=== PATIENT | male | born 1940 | race Caucasian/White ===

== ENCOUNTER 2016-07-05 18:22 | Observation (INO) | payer MEDICARE, OTHER ==
[2016-07-05] MEDS ORDERED: HYDROmorphone 1 MG/ML SYRINGE IVP STA (19:29)
[2016-07-05] MEDS ORDERED: SODIUM CHLORIDE 0.9% 1,000 ML IV ONE (19:29)
[2016-07-05] MEDS ORDERED: HYDROmorphone 1 MG/ML SYRINGE ONE (19:42)
[2016-07-05] MEDS ORDERED: ONDANSETRON 4 MG/2 ML VIAL ONE ×2 (19:52)
[2016-07-05] MEDS ORDERED: ONDANSETRON 4 MG/2 ML VIAL IVP STA (19:56)
[2016-07-05] MEDS ORDERED: PROMETHAZINE INJ 25 MG in SODIUM CHLORIDE 0.9% 50 ML IV STA (20:38)
[2016-07-05] MEDS ORDERED: PROMETHAZINE 25 MG/1 ML VIAL ONE (20:39)
[2016-07-05] MEDS ORDERED: IOPAMIDOL-300 100 ML VIAL IVP ONE (21:22)
[2016-07-05] MEDS ORDERED: MORPHINE 2 MG/ML SYRINGE IVP STA (21:50)
[2016-07-05] MEDS ORDERED: MORPHINE 2 MG/ML SYRINGE ONE (21:58)
[2016-07-05] MEDS ORDERED: MORPHINE 2 MG/ML SYRINGE IVP PRN (22:07)
[2016-07-05] MEDS ORDERED: ONDANSETRON 4 MG/2 ML VIAL IVP PRN (22:07)
[2016-07-05] MEDS ORDERED: SODIUM CHLORIDE FLUSH 0.9% 10 ML SYRINGE IVP PRN (22:07)
[2016-07-05] MEDS: ACETAMINOPHEN 1,000 MG/100 ML 100 ML IV SCH (23:58)
[2016-07-06] MEDS: SODIUM CHLORIDE FLUSH 0.9% 10 ML SYRINGE IVP SCH ×3 (05:40→22:05)
[2016-07-06] MEDS: ACETAMINOPHEN 1,000 MG/100 ML 100 ML IV SCH ×4 (05:40→22:05)
[2016-07-06] MEDS: POLYETHYLENE GLYCOL 3350 17 GM PACKET PO SCH (08:48)
[2016-07-06] MEDS: HYDROcod/ACETAM 5/325 MG TABLET PO PRN ×4 (10:00→22:04)
[2016-07-07] MEDS: ACETAMINOPHEN 1,000 MG/100 ML 100 ML IV SCH (05:10)
[2016-07-07] MEDS: HYDROcod/ACETAM 5/325 MG TABLET PO PRN ×2 (05:55→10:02)
[2016-07-07] MEDS: SODIUM CHLORIDE FLUSH 0.9% 10 ML SYRINGE IVP SCH ×2 (05:56→08:58)
[2016-07-07] MEDS: POLYETHYLENE GLYCOL 3350 17 GM PACKET PO SCH (08:58)
[2016-07-07] MEDS ORDERED: IBUPROFEN 600 MG TABLET PO SCH (12:00)
[2016-07-07] MEDS ORDERED: METOCLOPRAMIDE 10 MG/2 ML VIAL IVP PRN (12:44)
== END 2016-07-07 13:05 | disposition home or self-care (01) ==
DX: S22.41XA Multiple fractures of ribs, right side, initial encounter for closed fracture (principal); S27.2XXA Traumatic hemopneumothorax, initial encounter; I48.0 Paroxysmal atrial fibrillation; M81.0 Age-related osteoporosis without current pathological fracture; W11.XXXA Fall on and from ladder, initial encounter; Y93.H2 Activity, gardening and landscaping; Y92.9 Unspecified place or not applicable; Y99.8 Other external cause status
CPT/HCPCS: 36415; 71020; 71260; 74177; 80053; 83690; 85025; 96361; 96365; 96375; 96376; 97161; 99283; 99285; A9270; G0378; G8978; G8979; J0131; J1170; Q9967

== ENCOUNTER 2019-06-07 09:20 | Outpatient (CLI) | payer MEDICARE, OTHER ==
--- NOTE | 2019-06-07 15:04 | CT Report ---
Reason: NEW ONSET OF H/A Procedure Date: 06/07/2019 Accession Number: [id number] / [id number] Procedure: CT - HEAD WO CPT Code: Final Report FULL RESULT: EXAM: CT HEAD EXAM DATE: 06/07/2019 09:39 AM. CLINICAL HISTORY: NEW ONSET OF headache COMPARISON: None. TECHNIQUE: Multiaxial CT images were obtained from the foramen magnum to the vertex. Reformats: Sagittal and coronal. IV contrast: None. In accordance with CT protocol optimization, one or more of the following dose reduction techniques were utilized for this exam: automated exposure control, adjustment of mA and/or KV based on patient size, or use of iterative reconstructive technique. FINDINGS: Parenchyma: No intraparenchymal hemorrhage. No evidence of mass, midline shift, or CT findings of infarction. Campbell-white differentiation is distinct. Extraaxial Spaces: Normal for age. No subdural or epidural collections identified. Ventricles: Normal in size and position. Sinuses and Orbits: Imaged paranasal sinuses, orbits, and mastoids show no significant abnormality. Bones: No evidence of fracture or calvarial defect. Other: None. IMPRESSION: Normal head CT. RADIA
== END 2019-06-07 09:21 | disposition home or self-care (01) ==
LOC: DI 09:20
PROVIDERS: ATTEND Internal Medicine
DX: R51 Headache (principal)
CPT/HCPCS: 70450

== ENCOUNTER 2022-04-26 11:18 | Emergency (ER) | payer MEDICARE, OTHER ==
[2022-04-26 12:14] LABS: BASOPHILS % (AUTO) 0.3 %; EOSINOPHILS % (AUTO) 0.1 %; HCT - HEMATOCRIT 44.7 % (42.0-52.0); HGB - HEMOGLOBIN 14.6 g/dL (14.0-18.0); LYMPHOCYTES # (AUTO) 0.5 10^3/uL (1.5-3.5); LYMPHOCYTES % (AUTO) 4.4 %; MEAN CORPUSCULAR HEMOGLOBIN 30.2 pg (27.0-31.0); MEAN CORPUSCULAR HGB CONC 32.7 g/dL (32.0-36.0); MEAN CORPUSCULAR VOLUME 92.5 fL (80.0-94.0); MEAN PLATELET VOLUME 10.1 fL (7.4-11.4); MONOCYTES # (AUTO) 0.4 10^3/uL (0.0-1.0); MONOCYTES % (AUTO) 3.5 %; NEUTROPHILS # (AUTO) 10.6 10^3/uL (1.5-6.6); NEUTROPHILS % (AUTO) 91.3 %; PLT - PLATELET COUNT 212 10^3/uL (130-450); RED BLOOD COUNT 4.83 10^6/uL (4.70-6.10); RED CELL DISTRIBUTION WIDTH 12.4 % (12.0-15.0); WHITE BLOOD COUNT 11.6 x10^3/uL (4.8-10.8)
[2022-04-26 12:38] LABS: ALBUMIN/GLOBULIN RATIO 1.3 (1.0-2.2); CALCIUM 8.7 mg/dL (8.5-10.3); CREATININE 1.1 mg/dL (0.6-1.2)
[2022-04-26] MEDS ORDERED: ONDANSETRON 4 MG/2 ML VIAL IVP STA (12:49)
[2022-04-26] MEDS ORDERED: SODIUM CHLORIDE 0.9% 1,000 ML IV STA (12:49)
[2022-04-26] MEDS ORDERED: diazePAM INJ 5 MG/ML SYRINGE IVP STA (12:49)
--- NOTE | 2022-04-26 13:17 | ED Physician Documentation ---
History of Present Illness - Stated complaint Stated Complaint: VOMIT,DIZZY - Chief complaint Chief Complaint: Neuro - History obtained from History obtained from: Patient, Family - Additonal information Additional information: The patient comes to the emergency department with chief complaint of vertigo and nausea vomiting. He states he began to have the episodes of vertigo a little bit yesterday but has been the worst today. He states it is worse when he is lying back or if he turns his head suddenly. He gets a sense of movement that is not occurring, and then gets strongly nauseated. He states he woke up heavily sweating this morning and with a strong sense of vertigo nausea and ended up vomiting 5 times throughout the morning. He states that he has had brief episodes of vertigo before, but they only lasted for a few hours and have not been associated with nausea. The patient states that he is feeling quite a bit better now with regard to the nausea, and that his vertigo is a little better but gets worse again if he lays back. He denies any recent illnesses otherwise. He is otherwise quite healthy and takes vitamin supplements but does not have any major chronic medical problems, such as diabetes, hypertension, or ongoing cardiac disease. 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 He states that he quit drinking alcohol 5 years ago and has had not had any problems with it since. He was able to walk his dog this morning prior to vomiting, but states that he feels a little weak now. He has not been able to drink anything all morning. Review of Systems Constitutional: reports: Reviewed and negative Eyes: reports: Reviewed and negative Ears: reports: Reviewed and negative Nose: reports: Reviewed and negative Throat: reports: Reviewed and negative Cardiac: reports: Reviewed and negative Respiratory: reports: Reviewed and negative GI: reports: Nausea, Vomiting : reports: Reviewed and negative Skin: reports: Reviewed and negative Musculoskeletal: reports: Reviewed and negative Neurologic: reports: Other (Vertigo) Psychiatric: reports: Reviewed and negative Endocrine: reports: Reviewed and negative Immunocompromised: reports: Reviewed and negative PD PAST MEDICAL HISTORY - Past Medical History Cardiovascular: None Respiratory: None Endocrine/Autoimmune: None GI: None : Frequency HEENT: Other Psych: None Musculoskeletal: None Derm: None - Past Surgical History Past Surgical History: Yes General: Appendectomy - Present Medications Home Medications: Ambulatory Orders Medication Instructions Recorded Confirmed Cholecalciferol (Vitamin D3) 1 cap PO DAILY 07/06/16 07/06/16 [Vitamin D3] Flaxseed Oil 1,000 mg PO DAILY 07/06/16 07/06/16 Glucosa [place] 2Kcl/Chondroitin Dewey 1 tab PO DAILY 07/06/16 07/06/16 [Glucosamine-Chondroitin Tablet] Magnesium Citrate 250 mg PO DAILY 07/06/16 07/06/16 Multivit-Min/FA/Lycopen/Lutein 1 tab PO DAILY 07/06/16 07/06/16 [Centrum Silver Men Tablet] Docusate Sodium 250Mg Capsule 250 mg PO BID #60 capsule 07/07/16 [Colace 250Mg Capsule] HYDROcod/ACETAM 5/325 [[place] 5/325] 2 tab PO Q4HR PRN #60 tablet 07/07/16 Ibuprofen [Motrin] 600 mg PO Q6HR #60 tablet 07/07/16 Meclizine HCl [Antivert] 50 mg PO Q6H PRN #25 tablet 04/26/22 Ondansetron Odt [Zofran] 4 mg TL Q6H PRN #10 tablet 04/26/22 - Allergies Allergies/Adverse Reactions: Allergies Allergy/AdvReac Type Severity Reaction Status Date / Time No Known Drug Allergies Allergy Verified 07/05/16 18:34 - Social History Does the pt smoke?: No Smoking Status: Former smoker Does the pt drink ETOH?: No Does the pt have substance abuse?: No - Immunizations Immunizations are current?: Yes Immunizations: TDAP current <10years - POLST Patient has POLST: No PD ED PE NORMAL - Vitals Vital signs reviewed: Yes - General General: Alert and oriented X 3, No acute distress, Well developed/nourished - HEENT HEENT: Atraumatic, PERRL, EOMI, Moist mucous membranes - Neck Neck: Supple, no meningeal sign - Cardiac Cardiac: RRR, No murmur, Strong equal pulses - Respiratory Respiratory: No respiratory distress, Clear bilaterally - Abdomen Abdomen: Soft, Non tender, Non distended - Derm Derm: Normal color, Warm and dry, No rash - Extremities Extremities: No deformity, No edema, No calf tenderness / cord - Neuro Neuro: Alert and oriented X 3, land measurer 2-12 intact, Normal speech, Other (No nystagmus.) - Psych Psych: Normal mood, Normal affect Results - Vitals Vitals: Vital Signs - 24 hr 04/26/22 04/26/22 04/26/22 11:24 13:36 14:46 Temperature 37.0 C Heart Rate 52 L 57 L 58 L Respiratory 18 18 18 Rate Blood Pressure 151/65 H 112/60 120/63 O2 Saturation 100 99 100 Oxygen O2 Source Room air - EKG (time done) 1131 Rate: Rate (enter#) (54) Rhythm: NSR [place]: Normal Intervals: Prolonged CO QRS: Normal Ischemia: Normal ST segments Compare to prior EKG: Old EKG unavailable Computer interpretation: Agree with computer - Labs Labs: Laboratory Tests 04/26/22 04/26/22 04/26/22 11:58 11:58 11:58 WBC 11.6 H RBC 4.83 Hgb 14.6 Hct 44.7 MCV 92.5 MCH 30.2 MCHC 32.7 RDW 12.4 Plt Count 212 MPV 10.1 Neut # (Auto) 10.6 H Lymph # (Auto) 0.5 L [place] # (Auto) 0.4 Eos # (Auto) 0.0 Baso # (Auto) 0.0 Absolute Nucleated RBC 0.00 Nucleated RBC % 0.0 Sodium 137 Potassium 4.0 Chloride 102 Carbon Dioxide 27 Anion Gap 8.0 BUN 27 H Creatinine 1.1 Estimated GFR (MDRD) 64 L Glucose 129 H Calcium 8.7 Total Bilirubin 1.0 AST 23 ALT 21 Alkaline Phosphatase 68 Total Protein 7.0 Albumin 4.0 Globulin 3.0 Albumin/Globulin Ratio 1.3 Lipase 34 TSH 0.75 Nasal Adenovirus (PCR) Nasal B. parapertussis DNA (PCR) Nasal Coronavir 229E PCR Nasal Coronavir HKU1 PCR Nasal Coronavir NL63 PCR Nasal Coronavir OC43 PCR Nasal Enterovir/Rhinovir PCR Nasal Influenza B PCR Nasal Influenza A PCR Nasal Parainfluen 1 PCR Nasal Parainfluen 2 PCR Nasal Parainfluen 3 PCR Nasal Parainfluen 4 PCR Nasal RSV (PCR) Nasal B.pertussis DNA PCR Nasal C.pneumoniae (PCR) Jose Human Metapneumo PCR Nasal M.pneumoniae (PCR) Nasal SARS-CoV-2 (PCR) 04/26/22 13:28 WBC RBC Hgb Hct MCV MCH MCHC RDW Plt Count MPV Neut # (Auto) Lymph # (Auto) [place] # (Auto) Eos # (Auto) Baso # (Auto) Absolute Nucleated RBC Nucleated RBC % Sodium Potassium Chloride Carbon Dioxide Anion Gap BUN Creatinine Estimated GFR (MDRD) Glucose Calcium Total Bilirubin AST ALT Alkaline Phosphatase Total Protein Albumin Globulin Albumin/Globulin Ratio Lipase TSH Nasal Adenovirus (PCR) NOT DETECTED Nasal B. parapertussis DNA (PCR) NOT DETECTED Nasal Coronavir 229E PCR NOT DETECTED Nasal Coronavir HKU1 PCR NOT DETECTED Nasal Coronavir NL63 PCR NOT DETECTED Nasal Coronavir OC43 PCR NOT DETECTED Nasal Enterovir/Rhinovir PCR NOT DETECTED Nasal Influenza B PCR NOT DETECTED Nasal Influenza A PCR NOT DETECTED Nasal Parainfluen 1 PCR NOT DETECTED Nasal Parainfluen 2 PCR NOT DETECTED Nasal Parainfluen 3 PCR NOT DETECTED Nasal Parainfluen 4 PCR NOT DETECTED Nasal RSV (PCR) NOT DETECTED Nasal B.pertussis DNA PCR NOT DETECTED Nasal C.pneumoniae (PCR) NOT DETECTED Jose Human Metapneumo PCR NOT DETECTED Nasal M.pneumoniae (PCR) NOT DETECTED Nasal SARS-CoV-2 (PCR) NOT DETECTED PD Medical Decision Making - ED course Complexity details: reviewed results, re-evaluated patient, considered differential, d/w patient, d/w family ED course: The patient was treated symptomatically with IV fluids, Zofran, and Valium for his vertigo. Laboratory studies, including CBC and ER abdominal panel were obtained and unremarkable upon my evaluation. The patient was feeling much better after symptomatic treatment and I felt he was stable for discharge home. We have discussed the need for follow-up and the usual indications for return. I have sent prescriptions for meclizine and Zofran to the pharmacy of his choice. Departure - Departure Disposition: 01 Home, Self Care Clinical Impression: Benign positional vertigo Qualifiers: Laterality: unspecified laterality Qualified Code(s): H81.10 - Benign parox ysmal vertigo, unspecified ear Vomiting Qualifiers: Vomiting type: bilious vomiting Nausea presence: with nausea Qualified Code(s): R11.14 - Bilious vomiting Condition: Stable Instructions: ED BPV Vertigo, ED Nausea Vomiting Prescriptions: Meclizine HCl [Antivert] 50 mg PO Q6H PRN #25 tablet PRN Reason: Vertigo Ondansetron Odt [Zofran] 4 mg TL Q6H PRN #10 tablet PRN Reason: Nausea / Vomiting Comments: Your labs look great. Your EKG is also normal. Most likely, you have calcium deposits in your inner ears, which have caused this episode of vertigo. In general, these episodes are temporary and resolve on their own. It is not uncommon to be associated with significant nausea and vomiting, though some episodes are not accompanied by this. Prescriptions for nausea and dizziness medications have been electronically transmitted to the pharmacy of your choice, [facility] in [place]. You have been hydrated with IV fluids today and treated with IV medication. Please follow-up with your primary care physician for further concerns, or if your symptoms do not show noticeable improvement in the next week. Discharge Date/Time: 04/26/22 15:20
[2022-04-26 14:46] VITALS: BP 120/63
[2022-04-26 15:12] LABS: CORONAVIRUS 229E-RESP PCR NOT DETECTED; CORONAVIRUS HKU1-RESP PCR NOT DETECTED; CORONAVIRUS NL63-RESP PCR NOT DETECTED; CORONAVIRUS OC43-RESP PCR NOT DETECTED; HUMAN METAPNEUMOVIRUS NOT DETECTED; INFLUENZA A- RESP PCR PANEL NOT DETECTED; INFLUENZA B - RESP PCR PANEL NOT DETECTED; PARAINFLUENZA VIRUS 1 NOT DETECTED; PARAINFLUENZA VIRUS 2 NOT DETECTED; PARAINFLUENZA VIRUS 3 NOT DETECTED; PARAINFLUENZA VIRUS 4 NOT DETECTED; RHINOVIRUS/ENTEROVIRUS NOT DETECTED; RSV- RESP PCR PANEL NOT DETECTED; SARS-CoV-2 -RESP PCR PANEL NOT DETECTED
[2022-04-26 15:13] LABS: B. PARAPERTUSSIS- RESP PCR PAN NOT DETECTED; B. PERTUSSIS- RESP PCR PANEL NOT DETECTED; C. PNEUMONIAE- RESP PCR PANEL NOT DETECTED; M. PNEUMONIAE- RESP PCR PANEL NOT DETECTED
== END 2022-04-26 15:20 | disposition home or self-care (01) ==
LOC: ED 11:18
DX: H81.10 Benign paroxysmal vertigo, unspecified ear (principal); R11.14 Bilious vomiting; Z87.891 Personal history of nicotine dependence; Z20.822 Contact with and (suspected) exposure to COVID-19
CPT/HCPCS: 36415; 80053; 83690; 84443; 85025; 87633; 93005; 96361; 96374; 99284

== ENCOUNTER 2022-07-07 13:07 | Outpatient (CLI) | payer MEDICARE, OTHER ==
--- NOTE | 2022-07-07 13:04 | XRAY Report ---
PROCEDURE: Knee 4 View LT INDICATIONS: LEFT KNEE PAIN TECHNIQUE: 4 views of the left knee(s) were acquired. Single frontal view of the right knee also in cluded. COMPARISON: None. FINDINGS: Bones: No acute fracture or dislocation. Moderate medial compartment and mild patellofemoral compart ment narrowing present. At the imaged right knee, mild medial compartment narrowing is present. Soft tissues: No definite joint effusion. No suspicious soft tissue calcifications. IMPRESSION: Degenerative changes of the left knee. No acute osseous abnormality identified. If sympt oms persist, follow-up radiographs and/or CT or MRI may be helpful for further evaluation. Reviewed by: Amilcar Burger MD on 07/07/2022 1:02 PM PDT Approved by: Amilcar Burger MD on 07/07/2022 1:02 PM PDT Station ID: [id number]
== END 2022-07-07 13:13 | disposition home or self-care (01) ==
LOC: DI.WOS 13:07
PROVIDERS: ATTEND Orthopaedic Surgery
DX: M17.12 Unilateral primary osteoarthritis, left knee (principal)

== ENCOUNTER 2022-12-25 09:18 | Outpatient (CLI) | payer MEDICARE, OTHER ==
[2022-12-25 09:37] LABS: BASOPHILS # (AUTO) 0.1 10^3/uL (0.0-0.1); BASOPHILS % (AUTO) 0.9 %; EOSINOPHILS # (AUTO) 0.2 10^3/uL (0.0-0.7); EOSINOPHILS % (AUTO) 2.9 %; HCT - HEMATOCRIT 46.4 % (42.0-52.0); HGB - HEMOGLOBIN 15.3 g/dL (14.0-18.0); LYMPHOCYTES # (AUTO) 0.7 10^3/uL (1.5-3.5); LYMPHOCYTES % (AUTO) 9.9 %; MEAN CORPUSCULAR HEMOGLOBIN 30.5 pg (27.0-31.0); MEAN CORPUSCULAR VOLUME 92.4 fL (80.0-94.0); MEAN PLATELET VOLUME 9.7 fL (7.4-11.4); MONOCYTES # (AUTO) 0.6 10^3/uL (0.0-1.0); MONOCYTES % (AUTO) 8.6 %; NEUTROPHILS # (AUTO) 5.4 10^3/uL (1.5-6.6); NEUTROPHILS % (AUTO) 77.4 %; PLT - PLATELET COUNT 212 10^3/uL (130-450); RED BLOOD COUNT 5.02 10^6/uL (4.70-6.10); RED CELL DISTRIBUTION WIDTH 12.4 % (12.0-15.0); WHITE BLOOD COUNT 6.9 x10^3/uL (4.8-10.8)
[2022-12-25 09:47] LABS: BILIRUBIN,URINE NEGATIVE (NEGATIVE); GLUCOSE, URINE (UA) NEGATIVE (NEGATIVE); KETONES,URINE (UA) NEGATIVE (NEGATIVE); LEUKOCYTE ESTERASE, URINE NEGATIVE (NEGATIVE); NITRITE,URINE NEGATIVE (NEGATIVE); OCCULT BLOOD,URINE NEGATIVE (NEGATIVE); PROTEIN,URINE NEGATIVE (NEGATIVE); UROBILINOGEN,URINE 0.2 (NORMAL) E.U./dL (NORMAL)
[2022-12-25 09:49] LABS: ALBUMIN 4.1 g/dL (3.2-5.5); ALBUMIN/GLOBULIN RATIO 1.4 (1.0-2.2); ALKALINE PHOSPHATASE 66 IU/L (42-121); ALT ALANINE AMINOTRANSFERASE 13 IU/L (10-60); AST ASPARTATE AMINOTRANSFERASE 16 IU/L (10-42); BILIRUBIN,TOTAL 0.8 mg/dL (0.2-1.0); BUN - BLOOD UREA NITROGEN 24 mg/dL (6-20); CALCIUM 9.5 mg/dL (8.5-10.3); CARBON DIOXIDE - CO2 32 mmol/L (21-32); CHLORIDE 103 mmol/L (101-111); CHOL/HDL RATIO 4.1 (<5.0); CHOLESTEROL 199 mg/dL; CREATININE 1.1 mg/dL (0.6-1.3); GFR - MDRD 64 (>89); GLUCOSE 100 mg/dL (74-104); HDL CHOLESTEROL 49 mg/dL; LDL CHOLESTEROL,CALCULATED 133 mg/dL; LDL/HDL RATIO 2.7 (<3.6); POTASSIUM 4.5 mmol/L (3.5-4.5); SODIUM 138 mmol/L (135-145); TRIGLYCERIDES 85 mg/dL (48-352); VLDL CHOLESTEROL 17 mg/dL
[2022-12-25 09:50] LABS: CLARITY,URINE CLEAR (CLEAR)
[2022-12-25 10:04] LABS: THYROID STIMULATING HORMONE 1.05 uIU/mL (0.34-5.60)
[2022-12-25 10:45] LABS: PSA TOTAL < 0.008 ng/mL (0.000-2.000)
[2022-12-25 11:30] LABS: ESTIMATED AVERAGE GLUCOSE 103 mg/dL (70-100); HEMOGLOBIN A1c% 5.2 % (4.27-6.07)
== END 2022-12-25 09:19 | disposition home or self-care (01) ==
LOC: LAB 09:18
PROVIDERS: ATTEND Internal Medicine
DX: Z00.00 Encounter for general adult medical examination without abnormal findings (principal); M54.9 Dorsalgia, unspecified; G47.00 Insomnia, unspecified; M79.2 Neuralgia and neuritis, unspecified; M19.90 Unspecified osteoarthritis, unspecified site; C61 Malignant neoplasm of prostate; M25.519 Pain in unspecified shoulder; Z79.899 Other long term (current) drug therapy; R35.0 Frequency of micturition; Z86.010 Personal history of colon polyps
CPT/HCPCS: 36415; 80053; 80061; 81001; 81003; 82607; 83036; 83721; 84153; 84443; 85025; 87086